=== PATIENT | female | born 2000 | race Two or more races ===

== ENCOUNTER 2021-08-09 15:37 | Emergency (ER) | payer OTHER ==
[2021-08-09 16:42] VITALS: TEMP 98; BMI 27.4
[2021-08-09 18:46] LABS: BASO % 0.2 % (0-2.0); EOS % 0.3 % (0-4.5); HEMATOCRIT 40.5 % (32.4-45.2); HEMOGLOBIN 13.7 GM/dL (10.7-15.3); LYMPH % 25.4 % (8-40); MCH 31.5 pg (25.7-33.7); MCHC 33.8 g/dl (32.0-36.0); MEAN CELL VOLUME 93.2 fl (80-96); MEAN PLT VOLUME 8.3 fl (7.5-11.1); NEUT % 66.1 % (42.8-82.8); PLATELET COUNT 260 10^3/uL (134-434); RBC 4.35 M/mm3 (3.60-5.2); RDW 13.3 % (11.6-15.6); WHITE BLOOD COUNT 9.6 K/mm3 (4.0-10.0)
[2021-08-09 18:55] LABS: EPI CELLS 22 /uL (0-25.1); HYALINE CASTS 1 /uL (0-3.1); URINE APPEARANCE CLEAR; URINE BACTERIA 1468 /uL (0-1359); URINE BILIRUBIN NEGATIVE (NEGATIVE); URINE COLOR ORANGE; URINE GLUCOSE (UA) NEGATIVE (NEGATIVE); URINE KETONE NEGATIVE (NEGATIVE); URINE LEUK ESTERASE 2+ (NEGATIVE); URINE NITRITE NEGATIVE (NEGATIVE); URINE PROTEIN 1+ (NEGATIVE); URINE RBC 99 /uL (0-23.9); URINE UROBILINOGEN 0.2 mg/dL (0.2-1.0); URINE WBC 167 /uL (0-25.8)
[2021-08-09] MEDS ORDERED: NITROFURANTOIN MACROCRYSTAL 50 MG CAPSULE (FP) PO SCH (23:00)
[2021-08-09] MEDS ORDERED: NITROFURANTOIN MACROCRYSTAL 50 MG CAPSULE (FP) ONE (23:01)
[2021-08-09 23:17] VITALS: BP 117/55; PULSE 69
== END 2021-08-09 23:18 | disposition home or self-care (01) ==
LOC: JER 15:37
DX: N93.9 Abnormal uterine and vaginal bleeding, unspecified (principal)
CPT/HCPCS: 36415; 76801-TC; 81003; 84702; 84703; 85025; 86632; 87086; 87491; 87591; 99284-25

== ENCOUNTER 2021-08-10 13:50 | Emergency (ER) | payer OTHER ==
[2021-08-10 14:01] VITALS: BP 114/76; PULSE 98; TEMP 98.1; BMI 24.4
== END 2021-08-10 15:34 | disposition home or self-care (01) ==
LOC: JER 13:50
DX: N93.9 Abnormal uterine and vaginal bleeding, unspecified (principal)
CPT/HCPCS: 99283-25

== ENCOUNTER 2021-08-11 18:31 | Emergency (ER) | payer OTHER ==
[2021-08-11 18:42] VITALS: BP 106/75; PULSE 78; TEMP 98.9; BMI 24.6
[2021-08-11] MEDS ORDERED: ACETAMINOPHEN 500 MG TABLET (FP) PO ONE (20:40)
[2021-08-11] MEDS ORDERED: ACETAMINOPHEN 500 MG TABLET (FP) ONE (22:58)
== END 2021-08-11 23:26 | disposition home or self-care (01) ==
LOC: JERFT 18:31 → JER 18:31 → JERFT 23:26
DX: O20.9 Hemorrhage in early pregnancy, unspecified (principal); Z3A.00 Weeks of gestation of pregnancy not specified
CPT/HCPCS: 36415; 76817-TC; 84702; 99284-25

== ENCOUNTER 2021-08-15 09:20 | Emergency (ER) | payer OTHER ==
[2021-08-15 09:28] VITALS: BP 118/64; PULSE 92; TEMP 97.8; BMI 24.7
[2021-08-15 10:07] LABS: INR 1.09 (0.83-1.09); PROTHROMBIN TIME (PATIENT) 12.6 SEC (9.7-13.0)
[2021-08-15 10:18] LABS: BLOOD UREA NITROGEN 7.2 mg/dL (7-18); CALCIUM 8.9 mg/dL (8.5-10.1)
[2021-08-15 10:19] LABS: ALBUMIN 4.2 g/dl (3.4-5.0)
[2021-08-15 10:21] LABS: CREATININE 0.8 mg/dL (0.55-1.3)
[2021-08-15 10:22] LABS: BILIRUBIN,TOTAL 0.4 mg/dL (0.2-1)
[2021-08-15 10:23] LABS: BASO % 0.3 % (0-2.0); EOS % 0.6 % (0-4.5); HEMATOCRIT 40.5 % (32.4-45.2); HEMOGLOBIN 13.6 GM/dL (10.7-15.3); LYMPH % 26.8 % (8-40); MCH 31.5 pg (25.7-33.7); MCHC 33.5 g/dl (32.0-36.0); MEAN CELL VOLUME 94.1 fl (80-96); MEAN PLT VOLUME 8.2 fl (7.5-11.1); MONO % 7.5 % (3.8-10.2); NEUT % 64.8 % (42.8-82.8); PLATELET COUNT 288 10^3/uL (134-434); RBC 4.31 M/mm3 (3.60-5.2); RDW 13.6 % (11.6-15.6); TOT PROT 7.7 g/dl (6.4-8.2); WHITE BLOOD COUNT 7.3 K/mm3 (4.0-10.0)
== END 2021-08-15 13:49 | disposition home or self-care (01) ==
LOC: JERFT 09:20
DX: O03.9 Complete or unspecified spontaneous abortion without complication (principal); Z3A.00 Weeks of gestation of pregnancy not specified
CPT/HCPCS: 36415; 76817-TC; 80053; 84702; 85025; 85610; 86850; 86900; 86901; 99284-25